=== PATIENT | female | born 1970 | race Caucasian/White ===

== ENCOUNTER 2018-04-10 12:56 | Outpatient (CLI) | payer MEDICARE, MEDICAID ==
--- NOTE | 2018-04-11 09:07 | Diagnostic Imaging Report ---
Ultrasound of the bilateral breasts HISTORY: Screening, no comparison mammograms available COMPARISON: None Technique: Sonography of the bilateral breasts was performed in multiple planes. FINDINGS: Exam is limited as patient was uncooperative. Exam of the right breast demonstrates glandular and fatty breast tissue. There is a well defined nodule with peripheral area of hypoechogenicity and central increased echogenicity measuring 1.1 x 0.8 cm located at 12:00. There is also hypoechoic and possibly cystic nodule at 3:00 measuring 0.7 x 0.6 x 0.6 cm. There are also tubular structures along the retroareolar region with largest area measuring 0.4 x 0.4 x 0.7 cm. Exam left breast demonstrates heterogeneous glandular and fatty breast tissue. No discrete focal lesions identified. IMPRESSION: Limited exam as patient was cooperative. There are indeterminate nodules located within the right breast at 12:00 and at 3:00 as detailed above. Additional areas of nodularity and/or prominent ducts are seen along the right retroareolar region. Note neoplastic etiology cannot be excluded. Further assessment with mammography of both breasts are recommended. MRI would also be helpful for further assessment. BI-RADS 0, incomplete further assessment is recommended. Note that a clinically suspicious breast abnormality cannot be excluded.
== END 2018-04-10 14:58 ==
LOC: RAD 12:56
DX: N63.12 Unspecified lump in the right breast, upper inner quadrant (principal); N63.14 Unspecified lump in the right breast, lower inner quadrant; G80.9 Cerebral palsy, unspecified; R56.9 Unspecified convulsions; B18.2 Chronic viral hepatitis C
CPT/HCPCS: 76641